=== PATIENT | male | born 1985 | race Two or more races ===

== ENCOUNTER 2025-01-21 09:16 | Emergency (ER) | payer BC, SELFPAY ==
[2025-01-21] VITALS (8 sets, daily range): BP systolic 110–124; BP diastolic 64–97; PULSE 109–137; RESP 13–27; TEMP 36.7–37.4; O2SAT 96–100; BMI 32.6
--- NOTE | 2025-01-21 09:21 | EKG_ITS ---
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
--- NOTE | 2025-01-21 09:45 | XR_ITS ---
Examination: AP chest single view Technique one AP portable upright chest single view Date and time: January 21, 2025 1020 hours INDICATIONS: Chest pain beginning 2 days ago. FINDINGS: Normal heart size Minimal obscuration detail left hemidiaphragm Right lung clear IMPRESSION: Suspicious for early pneumonia left base
--- NOTE | 2025-01-21 10:06 | PC.NURSE ---
Patient from [facility] and taken to room 17 with c/o shaking, chills, left upper chest pain that started approx. 0800am, patient placed on CM, ST on the monitor, patient denies n/v. Patient states he does feel sob, 98% on the monitor, patient denies PMH, at bedside, EKG completed by SUPERVISOR INSECTIC[employer] and shown to Dr. Chen, chart up t9
[2025-01-21 10:28] LABS: Basophils % (Auto) 0 % (0-2.5); Eosinophils # (Auto) 0.3 Thou/mm3 (0.0-0.5); Eosinophils % (Auto) 3 % (0-10); Hematocrit 46.5 % (41.0-53.0); Hemoglobin 16.3 g/dL (13.5-16.0); Immature Granulocytes % (Auto) 1 % (0-0); Lymphocytes # (Auto) 0.8 Thou/mm3 (1.0-4.8); Lymphocytes % (Auto) 8 % (10-50); Mean Corpuscular HGB Conc 35.1 g/dl (31.0-37.0); Mean Corpuscular Hemoglobin 29.6 pg (25.0-35.0); Mean Corpuscular Volume 84 fL (80-100); Monocytes # (Auto) 0.3 Thou/mm3 (0.0-0.8); Monocytes % (Auto) 4 % (0-12); Neutrophils % (Auto) 84 % (37-80); Nucleated Red Blood Cell % 0 /100 WBC (0); Platelet Count 247 Thou/mm3 (140-440); RDW Standard Deviation 39.7 fL (35.1-43.9); Red Blood Count 5.51 Miln/mm3 (4.50-5.90); White Blood Count 9.5 Thou/mm3 (3.8-10.6)
[2025-01-21 10:45] LABS: Alanine Aminotransferase 15 U/L (10-49); Albumin, Serum 4.7 gm/dL (3.5-5.0); Albumin/Globulin Ratio 1.6 (1.2-2.2); Alkaline Phosphatase 97 U/L (46-116); Anion Gap 13 (7-16); Aspartate Amino Transferase 21 U/L (0-34); BUN/Creatinine Ratio 8 Ratio (12-20); Bilirubin,Total 0.9 mg/dL (0.3-1.2); Blood Urea Nitrogen 8 mg/dL (9-23); Calcium 9.2 mg/dL (8.3-10.6); Calcium (Corrected) 9.2 mg/dL (8.5-10.1); Carbon Dioxide 25.8 mMol/L (20.0-31.0); Chloride 101 mMol/L (98-107); Estimated Creatinine Clearance 110.1 mL/min (>60); Glucose 85 mg/dL (74-106); Osmolality,Calculated 276 (275-295); Potassium 4.1 mMol/L (3.4-5.1); Sodium 140 mMol/L (136-145); Total Protein 7.7 gm/dL (5.7-8.2); Troponin I < 0.002 ng/mL (0.0-0.045); eGFR > 60 See Note
--- NOTE | 2025-01-21 11:23 | PD.EDADULT ---
ED General RME/HPI General Chief complaint: Weakness Stated complaint: Weakness, unable to walk, chest pain Time Seen by Provider: 01/21/25 09:37 Arrival date/time: 01/21/25 09:16 RME / HPI RME / HPI narrative: 39 year old male with no significant PMH presented to the ER Related Data Allergies Allergy/AdvReac Type Severity Reaction Status Date / Time No Known Drug Allergies Allergy Verified 01/21/25 09:19 Course Orders Category Date Time Status Bedside COVID-19 Antigen Test NOW Care 01/21/25 11:07 Active Bedside Influenza A&B Antigen Test NOW Care 01/21/25 11:07 Completed Pipe Stem Aligner Q4H START 00 Care 01/21/25 10:04 Active EKG (ED ONLY) *Do not use* NOW Care 01/21/25 09:21 Completed EKG (ED Only) Stat Exams 01/21/25 09:21 Draft XR chest 1V portable Stat Exams 01/21/25 09:45 Completed CBC Stat Lab 01/21/25 10:16 Completed Comprehensive Metabolic Panel Stat Lab 01/21/25 10:16 Completed Drug Screen,Urine Stat Lab 01/21/25 10:58 Completed Lactate (Lactic Acid) Stat Lab 01/21/25 11:29 Results Procalcitonin Stat Lab 01/21/25 11:29 Completed Troponin I Stat Lab 01/21/25 10:16 Completed UA, C/S IF [Urinalysis, C/S if Indicated] Stat Lab 01/21/25 10:58 Completed Ondansetron Inj [Zofran Inj] Med 01/21/25 11:10 Discontinued 4 mg IV X1 ONE Sodium Chloride 0.9% 1000 ml [Ns] 1,000 ml Med 01/21/25 11:08 Discontinued IV 999 mls/hr Vital Signs Vital signs: Vital Signs Temperature 98.0 F 01/21/25 09:42 Pulse Rate 124 H 01/21/25 09:42 Respiratory Rate 20 01/21/25 09:42 Blood Pressure 119/64 01/21/25 09:42 Pulse Oximetry (%) 99 01/21/25 09:42 Oxygen Delivery Method Room Air 01/21/25 09:42 Discharge Plan Prescriptions/Referrals Referrals: aRkesh Tolliver MD [Primary Care Provider] - In 1 week Patient/Caregiver Discharge Instructions Print Language: Uzbek MDM Medication Administration(s) Medication Administration History Discontinued Medications Sodium Chloride (Ns) 1,000 mls @ 999 mls/hr IV .Q1H1M ONE Stop: 01/21/25 12:08 Last Admin: 01/21/25 11:39 Dose: 999 mls/hr Documented By: ADAN Ondansetron HCl (Ondansetron Inj 2 Mg/Ml Inj 2 Ml) 4 mg IV X1 ONE; Protocol Stop: 01/21/25 11:11 Last Admin: 01/21/25 11:38 Dose: 4 mg Documented By: ADAN
[2025-01-21 11:24] LABS: Collection Type, Urine Clean Catch
[2025-01-21 11:34] LABS: Amphetamine/Methamp Scrn,U Negative (Negative); Barbiturate Screen,Urine Negative (Negative); Benzodiazepines Screen,Urine Negative (Negative); Benzoylecgonine Screen, Ur Negative (Negative); Fentanyl Screen,Urine Negative (Negative); Opiate Screen,Urine Negative (Negative); THC Screen,Urine Negative (Negative)
[2025-01-21 11:37] LABS: Lactate (Lactic Acid) 2.4 mMol/L (0.4-2.0)
[2025-01-21] MEDS: ONDANSETRON INJ 2 MG/ML INJ 2 ML 4 MG IV (11:38)
[2025-01-21] MEDS: SODIUM CHLORIDE 0.9% 1000 ML 1,000 ML 999 ML IV ×2 (11:39→13:44)
[2025-01-21 12:06] LABS: Procalcitonin 0.09 ng/ml (0.0-0.49)
[2025-01-21 12:15] LABS: Bacteria,Urine Rare; Bilirubin,Urine Negative (Negative); Blood,Urine Negative (Negative); Clarity,Urine Clear (Clear/Hazy); Color,Urine Lt-Yellow (Lt Yel-Yel); Culture Indicated,Urine Not Indicated; Glucose, Urine Negative (Negative); Ketones,Urine Negative (Negative); Leukocyte Esterase,Urine Negative (Negative); Nitrite,Urine Negative (Negative); Protein,Urine Negative (Neg - Trace); RBC,Urine 2 /hpf (0-3); Specific Gravity,Urine 1.019 (1.001-1.035); Squamous Epithelial Cell,Urine < 1 /hpf (0-5); Urobilinogen,Urine Negative mg/dL (0.0-1.0); WBC,Urine < 1 /hpf (0-5)
--- NOTE | 2025-01-21 13:10 | PD.EDSEIZ ---
ED Seizures RME/HPI General Chief Complaint: Weakness Stated Complaint: Weakness, unable to walk, chest pain Time Seen by Provider: 01/21/25 09:37 Arrival date/time: 01/21/25 09:16 RME / HPI RME / HPI Narrative: 39 year old male with history of recurrent seizures presented to the ER with a chief complain of chills, weakness and chest pain Related Data Allergies Allergy/AdvReac Type Severity Reaction Status Date / Time No Known Drug Allergies Allergy Verified 01/21/25 09:19 Course Orders Category Date Time Status Bedside COVID-19 Antigen Test NOW Care 01/21/25 11:07 Active Bedside Influenza A&B Antigen Test NOW Care 01/21/25 11:07 Completed Stone Grader Q4H START 00 Care 01/21/25 10:04 Active EKG (ED ONLY) *Do not use* NOW Care 01/21/25 09:21 Completed EKG (ED Only) Stat Exams 01/21/25 09:21 Draft XR chest 1V portable Stat Exams 01/21/25 09:45 Completed CBC Stat Lab 01/21/25 10:16 Completed Comprehensive Metabolic Panel Stat Lab 01/21/25 10:16 Completed Drug Screen,Urine Stat Lab 01/21/25 10:58 Completed Lactate (Lactic Acid) Stat Lab 01/21/25 11:29 Results Procalcitonin Stat Lab 01/21/25 11:29 Completed Troponin I Stat Lab 01/21/25 10:16 Completed UA, C/S IF [Urinalysis, C/S if Indicated] Stat Lab 01/21/25 10:58 Completed Ondansetron Inj [Zofran Inj] Med 01/21/25 11:10 Discontinued 4 mg IV X1 ONE Sodium Chloride 0.9% 1000 ml [Ns] 1,000 ml Med 01/21/25 11:08 Discontinued IV 999 mls/hr Vital Signs Vital signs: Vital Signs Temperature 98.0 F 01/21/25 09:42 Pulse Rate 124 H 01/21/25 09:42 Respiratory Rate 20 01/21/25 09:42 Blood Pressure 119/64 01/21/25 09:42 Pulse Oximetry (%) 99 01/21/25 09:42 Oxygen Delivery Method Room Air 01/21/25 09:42 Seizure Medications / Prescriptions Medication administrations:: Medication Administration History Discontinued Medications Sodium Chloride (Ns) 1,000 mls @ 999 mls/hr IV .Q1H1M ONE Stop: 01/21/25 12:08 Last Admin: 01/21/25 11:39 Dose: 999 mls/hr Documented By: ADAN Ondansetron HCl (Ondansetron Inj 2 Mg/Ml Inj 2 Ml) 4 mg IV X1 ONE; Protocol Stop: 01/21/25 11:11 Last Admin: 01/21/25 11:38 Dose: 4 mg Documented By: ADAN Discharge Plan Prescriptions/Referrals Referrals: Rakesh Tolliver MD [Primary Care Provider] - In 1 week Patient/Caregiver Discharge Instructions Print Language: Nigerien
--- NOTE | 2025-01-21 13:12 | PD.EDADULT ---
ED General RME/HPI General Chief complaint: Weakness Stated complaint: Weakness, unable to walk, chest pain Time Seen by Provider: 01/21/25 09:37 Arrival date/time: 01/21/25 09:16 RME / HPI RME / HPI narrative: 39 year old male with history of recurrent seizures presented to the ER with a chief complain of chills, weakness, nausea and chest pain. Patient stated that he had a seizure or something. Per patient, his chest pain remains under his left breast and initially felt SOB but is better now. Patient denies diarrhea and constipation. Patient denies fever and sweats. Patient takes no medication. Per , she recieved a call from patient's work stating he had a seizure. Related Data Allergies Allergy/AdvReac Type Severity Reaction Status Date / Time No Known Drug Allergies Allergy Verified 01/21/25 09:19 Review of Systems Review of Systems Systems Reviewed: All systems reviewed, normal except as documented Narrative Review of Systems: Gen: No fever, +chills, no weight loss EYES: No discharge, no visual changes, no pain HEENT: No ear pain, no congestion, no sore throat PULM: No shortness of breath, no cough, no congestion CV: +chest pain, no dyspnea on exertion, no palpitations GI: +nausea, no vomiting, no diarrhea, no pain, no constipation : No frequency, no urgency, no dysuria Musc/skel: No joint pain, no back pain Skin: No rash Psyc: No hallucinations, no depression Heme/Lymph: No easy bleeding or bruising tendencies Neuro: +weakness, no headache Past Medical History Past Medical History CARDIAC: Negative Congestive Heart Failure RESPIRATORY: Negative Chronic Obstructive Pulmonary Disease (COPD) GENITOURINARY: Negative Renal Disease ENDOCRINE: Negative Diabetes Mellitus Type 1 or Diabetes Mellitus Type 2 Social History SMOKING STATUS: Never smoker ED Exam Narrative Physical exam: GENERAL APPEARANCE: alert and oriented x 4, well-developed, well-nourished, no acute distress HEENT: Normocephalic, atraumatic; pupils equal, round, reactive to light; EOMI; mucous membranes pink, moist; oropharynx clear NECK: Supple LUNGS: CTABL; no wheezes, no rales, no rhonchi HEART: Regular rate, regular rhythm; normal S1, S2; no murmurs ABDOMEN: minimally distended; normal BS; soft, no tenderness, no guarding, no rebound; no masses, no organomegaly, no hernia BACK: no CVA tenderness EXTREMITIES: atraumatic; no edema NEUROLOGIC: awake; alert and oriented x4; cranial nerves II-XII grossly intact; no focal sensory or motor deficits PSYCHIATRIC: appropriate mood and affect SKIN: warm, dry, normal color; no rashes Course Quality Measures none Orders Category Date Time Status Bedside COVID-19 Antigen Test NOW Care 01/21/25 11:07 Active Bedside Influenza A&B Antigen Test NOW Care 01/21/25 11:[address] Screening NOW Care 01/21/25 13:42 Active Office Administrator Q4H START 00 Care 01/21/25 10:04 Active EKG (ED ONLY) *Do not use* NOW Care 01/21/25 09:[address] angio chest Stat Exams 01/21/25 13:42 Completed EKG (ED Only) Stat Exams 01/21/25 09:21 Draft XR chest 1V portable Stat Exams 01/21/25 09:45 Completed CBC Stat Lab 01/21/25 10:16 Completed Comprehensive Metabolic Panel Stat Lab 01/21/25 10:16 Completed Drug Screen,Urine Stat Lab 01/21/25 10:58 Completed Lactate (Lactic Acid) Stat Lab 01/21/25 11:29 Completed Lactic Acid, 3 HR Stat Lab 01/21/25 15:00 Completed Procalcitonin Stat Lab 01/21/25 11:29 Completed Troponin I Stat Lab 01/21/25 10:16 Completed UA, C/S IF [Urinalysis, C/S if Indicated] Stat Lab 01/21/25 10:58 Completed Ondansetron Inj [Zofran Inj] Med 01/21/25 11:10 Discontinued 4 mg IV X1 ONE Sodium Chloride 0.9% 1000 ml [Ns] 1,000 ml Med 01/21/25 11:08 Discontinued IV 999 mls/hr Sodium Chloride 0.9% 1000 ml [Ns] 1,000 ml Med 01/21/25 13:36 Discontinued IV 999 mls/hr Vital Signs Vital signs: Vital Signs Temperature 98.0 F 01/21/25 09:42 Pulse Rate 124 H 01/21/25 09:42 Respiratory Rate 20 01/21/25 09:42 Blood Pressure 119/64 01/21/25 09:42 Pulse Oximetry (%) 99 01/21/25 09:42 Oxygen Delivery Method Room Air 01/21/25 09:42 Discharge Plan Plan Patient Disposition: HOME (Self Care) Prescriptions/Referrals Referrals: Rakesh Tolliver MD [Primary Care Provider] - In 1 week Problem List Clinical Impression: Dyspnea, Sinus tachycardia, Pulmonary nodule Patient/Caregiver Discharge Instructions Education Materials: ED Shortness of Breath (Dyspnea), ED Pulmonary Nodule, Solitary Print Language: Hungarian Stand Alone Forms: [employer]ury Award Info., Patient Portal Info Letter MDM Narrative MDM hospital course (for use when minimal MDM required): Claudia Wilhelm am scribing for and in the presence of Dr. Chen. Clinical Information Provided by: patient and spouse () Medical Records reviewed [facility] Meds/Rx considered, not ordered None describe: see above. Labs/Rad/Tests considered, not ordered None Chronic Illness/Social Conditions which may negatively complicate care or outcome(s)-explain: None or not applicable EKG Interpretation EKG #1: EKG Interpretation: EKG#1: EKG at 0954 hours.Interpreted by me: sinus tachycardia, rate 115, mild artifact. Labs Lab(s) Interpretation(s): n/a Imaging Imaging Interpretation(s): Ordering Physician: Varghese (MAI)Ramin NP Date of Service: 01/21/25 Procedure(s): XR chest 1V portable Accession Number(s): [id number] cc: Varghese (MAI),Ramin ONEILL; Rakesh Tolliver MD; Jeremi Song MD~ Examination: AP chest single view Technique one AP portable upright chest single view Date and time: January 21, 2025 1020 hours INDICATIONS: Chest pain beginning 2 days ago. FINDINGS: Normal heart size Minimal obscuration detail left hemidiaphragm Right lung clear IMPRESSION: Suspicious for early pneumonia left base Dictated By: Jeremi Song MD Signed By: <Electronically signed by Jeremi Song MD in OV> 01/21/25 1047 Ordering Physician: Nelly Chen MD Date of Service: 01/21/25 Procedure(s): CT angio chest Accession Number(s): [id number] cc: Rakesh Tolliver MD; Jeremi Song MD; Nelly Chen MD~ Examination: CTA chest with intravenous contrast 2-D reconstructions 3-D reconstructions, vascular Date and time of exam: January 21, 2025 at 1427 hours INDICATIONS: Chest pain shortness of breath today CTDI: vol (mGy) 9.27 DLP: (mGycm) 305 Technique: Multiple axial sections of the thorax have been obtained. 3 mm slice thickness, from below the hemidiaphragms to above the apices of the lungs. Mediastinal and lung density settings have been obtained. 2-D sagittal and coronal reconstructions. 3-D angiographic renderings, 3-D volume renderings, 3D post processing, vascular maximum intensity projections obtained. Contrast administered is 100 cc Isovue-370. Low dose protocols were performed. One or more of the following dose reduction techniques were used; automated exposure control, adjustment of the mA and/or KV according to patient size, use of iterative reconstruction technique. Findings: No thoracic aortic aneurysmal dilatation or dissection No pulmonary artery emboli No paratracheal tracheobronchial or bronchopulmonary adenopathy 4 mm pulmonary nodule right lower lobe No pneumonia or pulmonary edema No visualized liver or splenic lesion No gallstones No pancreatic or adrenal mass IMPRESSION: Negative for pulmonary artery emboli 4 mm pulmonary nodule right lower lobe, with this study as baseline recommend 6 month follow-up CT chest without contrast No pneumonia or pulmonary edema Dictated By: Jeremi Song MD Signed By: <Electronically signed by Jeremi Song MD in OV> 01/21/25 1501 Medication Administration(s) Medication Administration History Discontinued Medications Sodium Chloride (Ns) 1,000 mls @ 999 mls/hr IV .Q1H1M ONE Stop: 01/21/25 12:08 Last Infusion: 01/21/25 12:40 Dose: Infused Documented By: Admin: 01/21/25 11:39 Dose: 999 mls/hr Documented By: ADAN Sodium Chloride (Ns) 1,000 mls @ 999 mls/hr IV .Q1H1M ONE Stop: 01/21/25 14:36 Last Infusion: 01/21/25 14:45 Dose: Infused Documented By: Admin: 01/21/25 13:44 Dose: 999 mls/hr Documented By: ADAN Ondansetron HCl (Ondansetron Inj 2 Mg/Ml Inj 2 Ml) 4 mg IV X1 ONE; Protocol Stop: 01/21/25 11:11 Last Admin: 01/21/25 11:38 Dose: 4 mg Documented By: ADAN Diagnosis Differential Diagnosis ED Complaint MDM: postictal state, Rhabdomyolysis, Myocardial Ischemia Diagnoses ruled out and/or further discussions: dyspnea, sinus tachycardia, pulmonary nodule
--- NOTE | 2025-01-21 13:42 | XR_ITS ---
Examination: CTA chest with intravenous contrast 2-D reconstructions 3-D reconstructions, vascular Date and time of exam: January 21, 2025 at 1427 hours INDICATIONS: Chest pain shortness of breath today CTDI: vol (mGy) 9.27 DLP: (mGycm) 305 Technique: Multiple axial sections of the thorax have been obtained. 3 mm slice thickness, from below the hemidiaphragms to above the apices of the lungs. Mediastinal and lung density settings have been obtained. 2-D sagittal and coronal reconstructions. 3-D angiographic renderings, 3-D volume renderings, 3D post processing, vascular maximum intensity projections obtained. Contrast administered is 100 cc Isovue-370. Low dose protocols were performed. One or more of the following dose reduction techniques were used; automated exposure control, adjustment of the mA and/or KV according to patient size, use of iterative reconstruction technique. Findings: No thoracic aortic aneurysmal dilatation or dissection No pulmonary artery emboli No paratracheal tracheobronchial or bronchopulmonary adenopathy 4 mm pulmonary nodule right lower lobe No pneumonia or pulmonary edema No visualized liver or splenic lesion No gallstones No pancreatic or adrenal mass IMPRESSION: Negative for pulmonary artery emboli 4 mm pulmonary nodule right lower lobe, with this study as baseline recommend 6 month follow-up CT chest without contrast No pneumonia or pulmonary edema
[2025-01-21 14:34] LABS: Reflex Lactate? Y
[2025-01-21 15:08] LABS: Lactic Acid, 3 HR 1.5 mMol/L (0.4-2.0)
== END 2025-01-21 15:39 | disposition home or self-care (01) ==
PROVIDERS: Nurse Practitioner Primary Care; Emergency Provider Emergency Medicine; PCP Family Medicine
DX: R06.00 Dyspnea, unspecified (principal); R00.0 Tachycardia, unspecified; R91.1 Solitary pulmonary nodule
CPT/HCPCS: 36415; 71045; 71275; 80053; 80307; 81001; 83605; 84145; 84484; 85025; 87400; 87811; 93005; 96361; 96374; 99285; A4649; J2405; J7030; Q9967

== ENCOUNTER 2025-07-26 00:22 | Emergency (ER) | payer BC, SELFPAY ==
[2025-07-26 00:25] VITALS: BMI 25.8
--- NOTE | 2025-07-26 00:51 | XR_ITS ---
Examination: Clavicle 2 views, left Technique: Clavicle AP, angled up AP, 2 views Exam date and time: July 26, 2025, 0 1. 1 hours INDICATIONS: Patient fell 4 hours ago with injury to the shoulder, clavicle pain FINDINGS: 5 mm AC joint separation No clavicle fracture IMPRESSION: Positive for AC joint separation
--- NOTE | 2025-07-26 00:51 | XR_ITS ---
Examination: Shoulder, left, 3 views Technique: Shoulder AP internal rotation, AP external rotation, Y view shoulder, 3 views Exam date and time : July 26, 2025, 0100 hours INDICATIONS: Patient fell 4 hours ago with into the shoulder, shoulder pain. FINDINGS: 5 mm AC joint separation Humerus scapula and clavicle appear intact No shoulder dislocation or shoulder fracture IMPRESSION: Positive for AC joint separation
[2025-07-26 00:53] VITALS: BP 136/88; PULSE 89; RESP 20; TEMP 36.7; O2SAT 96
--- NOTE | 2025-07-26 03:24 | EDNOTE_ITS ---
ED Fall Injury RME/HPI General Chief Complaint: Fall Stated Complaint: FELL Time Seen by Provider: 07/26/25 00:51 Arrival date/time: 07/26/25 00:22 This is a case of 40-year-old male with no medical history came in in the emergency room due to left shoulder pain and clavicular pain history of present illness started 4 hours prior to arrival in the emergency room when patient was playing ice hockey collided with another player and landed on his left shoulder sustaining pain on the left shoulder and contusion in the left clavicle patient denies any head neck chest or abdominal injury no loss of consciousness denies any numbness weakness or tingling sensation denies any other injury Limitations: no limitations Related Data Previous Rx's ?Medication ?Instructions ?Recorded hydrocodone 5 mg-acetaminophen 325 1 tab PO Q6H PRN pa in #16 tabs 07/26/25 mg tablet Allergies Allergy/AdvReac Type Severity Reaction Status Date / Time No Known Drug Allergies Allergy Verified 07/26/25 00:25 Review of Systems Review of Systems Systems Reviewed: All systems reviewed, normal except as documented Constitutional Constitutional: Reports system reviewed and no additional complaints, except as documented and Reports as per HPI Cardiovascular Cardiovascular: Reports system reviewed and no additional complaints, except as documented and Reports as per HPI Respiratory Respiratory: Reports system reviewed and no additional complaints, except as documented and Reports as per HPI Gastrointestinal Gastrointestinal: Reports system reviewed and no additional complaints, except as documented and Reports as per HPI Musculoskeletal Musculoskeletal: Reports system reviewed and no additional complaints, except as documented and Reports as per HPI Neurologic Neurologic: Reports system reviewed and no additional complaints, except as documented and Reports as per HPI Past Medical History Past Medical History CARDIAC: Negative Cardiac Disorders or Congestive Heart Failure RESPIRATORY: Negative Chronic Obstructive Pulmonary Disease (COPD) or Asthma GENITOURINARY: Negative Renal Disease ENDOCRINE: Negative Diabetes Mellitus Type 1 or Diabetes Mellitus Type 2 HEMATOLOGIC: Negative Sickle Cell Disease Social History SMOKING STATUS: Never smoker ED Exam General Limitations: Present no limitations General appearance: Present alert, in no apparent distress and other (Patient is awake alert oriented not in distress nontoxic looking well-hydrated well- nourished) Head Head exam: Present atraumatic, normocephalic and normal inspection Eye Eye exam: Present normal appearance, PERRL and EOMI ENT ENT exam: Present normal exam, normal oropharynx and mucous membranes moist Neck Neck exam: Present normal inspection, full ROM and trachea midline; Absent tenderness, meningismus, lymphadenopathy or thyromegaly Chest Chest inspection: Present normal inspection and symmetric chest wall rise; Absent tenderness Respiratory Respiratory exam: Present normal lung sounds bilaterally; Absent respiratory distress, wheezes, stridor, accessory muscle use or prolonged expiratory phase Cardiovascular Cardiovascular exam: Present regular rate, normal rhythm and normal heart sounds; Absent bradycardia, tachycardia, irregular rhythm, systolic murmur or diastolic murmur Abdominal Exam Abdominal exam: Present soft and normal bowel sounds; Absent distention, tenderness, guarding, rebound, rigidity, diminished bowel sounds, hyperactive bowel sounds, hypoactive bowel sounds or organomegaly Extremities Exam Extremities exam: Present normal inspection and full ROM Expanded Upper Extremity Exam Shoulder exam: Present tenderness, swelling and other (Moderate tenderness in the left shoulder with mild swelling no crepitation no deformity ROM limited pulses were full and equal capillary refill less than 2 seconds sensory intact patient also have contusion on the left clavicle but no palpable fracture); Absent abrasion, laceration, ecchymosis, deformity, crepitus, dislocation, erythema or tenderness over AC joint Arm exam: Present normal inspection and full ROM; Absent tenderness or swelling Elbow exam: Present normal inspection and full ROM; Absent tenderness or swelling Forearm/Wrist exam: Present normal inspection and full ROM; Absent tenderness or swelling Hand exam: Present normal inspection and full ROM; Absent tenderness or swelling Back Exam Back exam: Present normal inspection and full ROM Neurological Exam Neurological exam: Present alert, oriented X3, CN II-XII intact, normal gait and reflexes normal; Absent motor sensory deficit Psychiatric Psychiatric exam: Present normal affect and normal mood Skin Skin exam: Present warm, dry, intact, normal color and other (Sensory intact) Course Quality Measures none Orders Category Date Time Status sling [Splint / Immobilizer] STAT Care 07/26/25 03:08 Active XR clavicle LT Stat Exams 07/26/25 00:51 Taken XR shoulder LT min 2V Stat Exams 07/26/25 00:51 Taken Dexamethasone Inj [Decadron Inj] Med 07/26/25 03:08 Discontinued 10 mg IM X1 ONE Ketorolac Inj [Toradol Inj] Med 07/26/25 03:08 Discontinued 30 mg IM X1 ONE Vital Signs Vital signs: Vital Signs Temperature 98.1 F 07/26/25 00:53 Pulse Rate 89 07/26/25 00:53 Respiratory Rate 20 07/26/25 00:53 Blood Pressure 136/88 H 07/26/25 00:53 Pulse Oximetry (%) 96 07/26/25 00:53 Oxygen Delivery Method Room Air 07/26/25 00:53 Oxygen saturation is 96% on room air Fall MDM Narrative MDM Narrative:: This is a case of 40-year-old male with no medical history came in in [facility] room due to left shoulder pain and clavicular pain history of present illness started 4 hours prior to arrival in the emergency room when patient was playing ice hockey collided with another player and landed on his left shoulder sustaining pain on the left shoulder and contusion in the left clavicle patient denies any head neck chest or abdominal injury no loss of consciousness denies any numbness weakness or tingling sensation denies any other injury physical examination patient is awake alert oriented not in distress nontoxic looking well-hydrated well-nourished patient noted to have moderate tenderness on the left shoulder with mild swelling specially on the deltoid area no crepitation no deformity ROM is limited due to pain pulses were full and equal capillary refill less than 2 seconds sensory intact patient also sustained a contusion on the left clavicle but no palpable fracture x-ray showed no fracture no dislocation a sling was applied patient tolerated well neurovascular intact patient was given Toradol and dexamethasone here in the emergency room which improved pain resolved the pain patient was prescribed with [place] for pain RICE treatment will continue by the patient at home patient will follow-up with PCP for reevaluation and for any worsening symptoms or emergent concerns return precaution to the ER is advised Patient was discharged with comfortable condition walking with stable gait. Patient verbalized no further complains explained diagnosis and answered patient question. Patient is comfortable with the proposed management plan including the need to follow up with his/her primary care physician and any specialist if applicable Discussed patient for any urgent condition or worsening sx, He/She needed to go to emergency room immediately or call 911. Patient acknowledge the responsibility to follow up as instructed and to monitor her/his symptoms. For any persistence of the symptoms for more than 3-5 days return precaution advised. Discussed the result of the test and was given printed discharge instruction Patient data External records reviewed:: [facility] previous records Clinical information provided by:: patient Social determinants that could affect healthcare access:: none Patient has the following chronic illnesses:: None How is presenting disease/condition affected by chronic disease/condition?: no chronic disease Evaluation data The following diagnostics were reviewed and interpreted by me:: radiology exam(s) Lab and/or radiology exams considered but not ordered:: Reviewed Interpretation Summary: Reviewed Medications / Prescriptions Medications or Prescriptions considered but not ordered:: Given Medication administrations:: Medication Administration History Discontinued Medications Dexamethasone Sodium Phosphate (Dexamethasone Sod Phos Inj 10 Mg/Ml Vial) 10 mg IM X1 ONE Stop: 07/26/25 03:09 Ketorolac Tromethamine (Ketorolac Inj 60 Mg/2 Ml Vial) 30 mg IM X1 ONE Stop: 07/26/25 03:09 Given Consultations Consultation(s) initiated? (list below): No Diagnosis Fall Differential Diagnosis: dislocation of shoulder region Most likely diagnosis given after review of the tests above:: Left shoulder sprain clavicular contusion Admission Indicated Admission indicated?: not indicated Explain why admission is indicated or not indicated:: Not indicated Admission Request Was there a request for admission?: No Disposition Plan Disposition Plan: Discharge Discharge Attestation Discharge Attestation: The patient and all family members were given an opportunity to ask questions and understood the discharge instructions. Discharge instructions specifically effects, indications for sooner follow up or return to the emergency department, and the expected course of current diagnosis. Patient condition: Stable Discharge Plan Plan Patient Disposition: HOME (Self Care) Patient condition on transfer: Stable Prescriptions/Referrals Prescriptions/Med Rec: New hydrocodone-acetaminophen 5-325 mg tablet 1 tab PO Q6H MDD max 4 tabs per day PRN (Reason: pain) Qty: 16 0RF Problem List Clinical Impression: Sprain of left shoulder, Contusion of left clavicle Patient/Caregiver Discharge Instructions Education Materials: Contusion Bone Tx, ED Shoulder Sprain, ED Sling, ED RICE Additional Instructions: Follow-up with your primary care physician in 2 days for reevaluation worsening symptoms or any emergent concern such as numbness weakness tingling sensation call 911 or go to the nearest emergency room ice pack every 2 hours for 20 minutes for 24 hours then alternate with warm compress keep the sling in place until cleared by your primary care physician ice pack every 2 hours for 20 minutes for 24 hours then alternate with warm compress keep the sling in place until cleared by your primary care physician is advised no sports no PE for 2 weeks is advised Print Language: Chadian Stand Alone Forms: [employer] Award Info., Work/School Release, Patient Portal Info Letter PA/EQUIPMENT LEAD Supervising Physician PA/EQUIPMENT LEAD Supervising Physician: Dr. Prince
[2025-07-26] MEDS: KETOROLAC INJ 60 MG/2 ML VIAL 30 MG IM (03:33)
[2025-07-26] MEDS: DEXAMETHASONE SOD PHOS INJ 10 MG/ML VIAL IM (03:38)
[2025-07-26 04:04] VITALS: RESP 16
--- NOTE | 2025-07-26 21:33 | EDNOTE_ITS ---
Emergency Room Addendum Addendum Narrative: Spoke to the patient today 9:33 PM July 26, 2025 regarding the result of x- ray AC separation patient was advised to follow-up with PCP to be referred to orthopedic surgeon for further evaluation and treatment modified duty was given patient understood very well patient return here in the ER papers was given
== END 2025-07-26 04:05 | disposition home or self-care (01) ==
LOC: SERX 03:24
PROVIDERS: Emergency Provider Emergency Medicine; PCP Family Medicine
DX: S43.102A Unspecified dislocation of left acromioclavicular joint, initial encounter (principal); W03.XXXA Other fall on same level due to collision with another person, initial encounter; Y93.22 Activity, ice hockey
CPT/HCPCS: 73000; 73030; 96372; 99283; A4565; J1100; J1885